=== PATIENT | female | born 1980 | race Caucasian/White ===

== ENCOUNTER 2021-02-19 08:46 | Emergency (ER) | payer OTHER, SELFPAY ==
[2021-02-19 08:56] VITALS: BP 112/79; PULSE 111; RESP 16; TEMP 37.1; O2SAT 99
--- NOTE | 2021-02-19 10:33 | ED.BACK ---
HPI - Back Pain/Injury General Chief Complaint: Urogenital-Female Stated Complaint: santiago/no appetite/chills/back/nek pain Time Seen by Provider: 02/19/21 09:28 Source: patient and RN notes reviewed Mode of arrival: ambulatory Limitations: no limitations History of Present Illness HPI Narrative: Patient presents today complaining of left lower back pain x3 days that has been worse since yesterday. She is also complaining of some neck pain that she believes is associated with the migraine she had yesterday. The migraine has resolved after taking her Imitrex and Zofran. The migraine was similar to her previous migraines. The back pain does not radiate. Denies numbness or tingling in her extremities or genitalia. Denies any loss of bowel or bladder control. Denies any urinary symptoms. Denies any URI symptoms. She has been vaccinated against COVID-19. States her friend had similar symptoms when she had COVID-19 and patient is requesting a COVID-19 test. Patient works as a [employer] at a [place] [employer]. MD elicited complaint: back pain Related Data Home Medications Medication Instructions Recorded Confirmed bupropion HCl PO 05/25/19 cyclobenzaprine mg 05/25/19 lorazepam 05/25/19 meloxicam 05/25/19 sumatriptan succinate mg PO 05/25/19 valacyclovir 05/25/19 Allergies Allergy/AdvReac Type Severity Reaction Status Date / Time Penicillins Allergy Unknown Verified 06/21/17 08:54 Review of Systems Review of Systems: CONSTITUTIONAL: Denies body aches, fever, chills, or sweats. EYES: Denies visual changes, redness, or discharge. ENT: Denies rhinorrhea, congestion, sore throat, or otalgia. CARDIOVASCULAR: Denies chest pain, palpitations, or edema. RESPIRATORY: Denies cough or dyspnea. GASTROINTESTINAL: Denies abdominal pain, nausea, vomiting, or diarrhea. GENITOURINARY: Denies dysuria or hematuria. SKIN: Denies rash, itching, or wounds. MUSCULOSKELETAL: Denies joint pain, or myalgia.+ Back pain NEUROLOGIC: Denies headache, numbness, tingling, or weakness. PSYCH: Denies depression or anxiety. PMFSH Comments At time of signature, I have reviewed and agree with nursing past medical, surgical, social and family history unless otherwise noted. Please see nursing chart for further information. There is no relevant family history pertinent to the presenting complaint Exam Narrative: GENERAL: Well-appearing, well-nourished, and in no acute distress. HEAD: Normocephalic, atraumatic. EYES: EOMI. No redness or drainage. Conjunctivae normal. ENT: Mucous membranes pink and moist. Nares clear. No rhinorrhea. TMs normal bilaterally. Throat normal. Uvula midline. NECK: Normal AROM. Supple. No lymphadenopathy. CHEST: No respiratory distress. Clear to auscultation. HEART: Regular rate and rhythm. No murmur appreciated. Normal peripheral pulses. ABDOMEN: Soft, nontender, nondistended, normal active bowel sounds. MUSCULOSKELETAL: No bony tenderness of the spine. Left lumbar paraspinal muscle tenderness. EXTREMITIES: Normal range of motion. No edema. SKIN: Warm, dry, no rash. Capillary refill normal. Normal skin turgor. NEURO: No focal deficits. Alert and oriented x3. Gait steady. PSYCH: Normal affect. No signs of depression or anxiety. Course Vital Signs Vital signs: Vital Signs Temperature 98.7 F 02/19/21 08:56 Pulse Rate 111 H 02/19/21 08:56 Respiratory Rate 16 02/19/21 08:56 Blood Pressure 112/79 02/19/21 08:56 Pulse Oximetry 99 02/19/21 08:56 Temperature 98.7 F 02/19/21 08:56 Pulse Rate 111 H 02/19/21 08:56 Respiratory Rate 16 02/19/21 08:56 Blood Pressure 112/79 02/19/21 08:56 Pulse Oximetry 99 02/19/21 08:56 Reviewed MDM - Back Pain/Injury Differential Diagnosis Differential diagnosis: Likely lumbar radiculopathy, sciatica, strain of lumbar region, pyelonephritis and other (UTI) Lab Data Attestation: I reviewed the patient's lab results. Labs: Lab Results 02/19/21 Range/U
== END 2021-02-19 10:50 | disposition home or self-care (01) ==
PROVIDERS: Emergency Provider Nurse Practitioner
DX: S39.012A Strain of muscle, fascia and tendon of lower back, initial encounter (principal); X58.XXXA Exposure to other specified factors, initial encounter; Z20.822 Contact with and (suspected) exposure to COVID-19
CPT/HCPCS: 81003; 87086; 87088; 87426; 99213; C9803; G0463

== ENCOUNTER 2021-03-31 08:37 | Emergency (ER) | payer OTHER, SELFPAY ==
[2021-03-31 08:51] VITALS: BP 112/76; PULSE 74; RESP 16; TEMP 36.8; O2SAT 100
--- NOTE | 2021-03-31 09:16 | ED.FEMALEGU ---
HPI - Female Genitourinary General Chief complaint: Urogenital-Female Stated complaint: UTI Time Seen by Provider: 03/31/21 09:17 Source: patient and RN notes reviewed Mode of arrival: ambulatory Limitations: no limitations History of Present Illness HPI Narrative: 41-year-old female presents with concern for urinary tract infection. She reports symptoms started Tuesday with burning and urgency, difficulty emptying her bladder. Reports she is increasing her water intake with no relief. Reports today she started having mild low back pain. She denies fever, body aches, chills, sweats. Reports she took Azo several times on Tuesday, Tuesday, Tuesday. She denies taking any Azo in the last 8 hours. She denies abnormal vaginal discharge, abnormal vaginal bleeding. MD elicited complaint: UTI Related Data Home Medications Medication Instructions Recorded Confirmed cyclobenzaprine 10 mg PO DAILY 05/25/19 03/31/21 valacyclovir 500 mg PO DAILY 05/25/19 03/31/21 duloxetine 60 mg PO DAILY 03/31/21 03/31/21 Allergies Allergy/AdvReac Type Severity Reaction Status Date / Time No Known Allergies Allergy Verified 03/31/21 09:23 Review of Systems Review of Systems: CONSTITUTIONAL: Denies malaise, chills, sweats, or fever. GASTROINTESTINAL: Denies abdominal pain, nausea, vomiting, diarrhea, bloody, or mucous stools. GENITOURINARY: Reports dysuria frequency. Denies urgency, flank pain, hematuria. MUSCULOSKELETAL: Reports mild low back pain. Denies myalgia. All systems reviewed & are unremarkable except as noted in HPI and below PMFSH Comments At time of signature, agree with nursing past medical, surgical, social and family history. There is no relevant family history pertinent to the presenting complaint Exam Narrative: GENERAL: Well-appearing, well-nourished, and in no acute distress. HEAD: Normocephalic. EYES: PERRLA, conjunctivae clear. NECK: Supple. No lymphadenopathy CHEST: Clear to auscultation. No respiratory distress. HEART: Regular rate and rhythm. ABDOMEN: Soft, nontender upon palpation, nondistended, normal active bowel sounds, no palpable or pulsatile masses, no guarding. No CVA tenderness SKIN: Warm, dry, no rash. NEURO: Alert and oriented x3. PSYCH: Normal mood and affect Course Course Emergency Course: Patient is aware of diagnosis, understands and agrees to treatment plan. Anticipatory guidance given. Patient agrees to follow-up as directed and is aware of reasons to seek care at the emergency department. Portions of this record may have been created with voice recognition software Vital Signs Vital signs: Vital Signs Temperature 98.3 F 03/31/21 08:51 Pulse Rate 74 03/31/21 08:51 Respiratory Rate 16 03/31/21 08:51 Blood Pressure 112/76 03/31/21 08:51 Pulse Oximetry 100 03/31/21 08:51 Temperature 98.3 F 03/31/21 08:51 Pulse Rate 74 03/31/21 08:51 Respiratory Rate 16 03/31/21 08:51 Blood Pressure 112/76 03/31/21 08:51 Pulse Oximetry 100 03/31/21 08:51 Reviewed. MDM - Female Genitourinary MDM Narrative Medical decision making narrative: Exam findings and UA show no acute concerns or changes; patient is non-toxic appearing and is in no distress. Patient is appropriate for outpatient treatment and follow-up. Differential Diagnosis Differential diagnosis: Likely urinary tract infection and cystitis Lab Data Labs: Urine Glucose Negative Reference Range: Negative Urine Glucose Negative Reference Range: Negative Urine Bilirubin Negative Reference Range: Negative Urine Bilirubin Negative Reference Range: Negative Urine Ketone Negative Reference Range: N
== END 2021-03-31 09:30 | disposition home or self-care (01) ==
PROVIDERS: Emergency Provider Nurse Practitioner
DX: N39.0 Urinary tract infection, site not specified (principal); F41.9 Anxiety disorder, unspecified
CPT/HCPCS: 81003; 87077; 87086; 87088; 87186; 99213; G0463